=== PATIENT | female | born 1955 | race Caucasian/White ===

== ENCOUNTER 2017-01-16 10:30 | Outpatient (CLI) | payer OTHER ==
[~2017-01-16] VITALS: Ht 167.6 cm; Wt 64.0 kg
[~2017-01-16 10:30] MED LIST: AC500T PO; ALPR1T; AMBIEN; DIASTAT RC; ESTR1TAB24 PO; HYDROCODONE 5/500; IBP800T PO; LEXAPRO; MELA1TAB11 PO; VORT20TA PO
[2017-01-17] MEDS ORDERED: ALPR1TAB2 PO (08:17)
[2017-01-17] MEDS ORDERED: LINA145C PO (09:53)
== END 2017-01-16 10:45 ==
LOC: PREOP 10:30
PROVIDERS: ATTEND Internal Medicine
DX: Z01.818 Encounter for other preprocedural examination (principal); Z12.11 Encounter for screening for malignant neoplasm of colon

== ENCOUNTER 2017-01-17 08:00 | Day surgery (SDC) | payer OTHER ==
--- NOTE | 2017-01-13 23:00 | HISTORY AND PHYSICAL ---
DATE OF SERVICE: HISTORY OF PRESENT ILLNESS: The patient is a 61-year-old white female referred by Dr. Kapoor for screening colonoscopy. She does report decades long history of constipation that has gotten worse despite increased fluid and fiber intake. She will have a hard BM with straining every fourth or fifth day along with the use of magnesium or senna-based laxative. She reports associated bloating with relief after the passage of stool. She denies any problems with diarrhea and has noted no bright red blood per rectum or melena. She has tried regular MiraLax that she does not care for, and stool softeners have not been having any help. She is not aware if this followed any form of trauma or surgery. She reports that her weight has been stable with no change in appetite. PAST SURGICAL HISTORY: Significant for hysterectomy and tubal ligation many years ago. She had more recent surgery what sounds like a bladder suspension for incontinence, which was successful at . PAST MEDICAL HISTORY: Significant for an isolated seizure at that time when she had mild hyponatremia in 2010. She has had no subsequent reported seizures and has not been on any medication for seizures. She does have a history of anxiety and depression. MEDICATIONS ON ADMISSION: Include estradiol 1 mg daily, trintellix 20 mg daily, mirtazapine 45 mg at bedtime, alprazolam 1 mg b.i.d., and p.r.n. Aleve. ALLERGIES: She reports an allergy to PENICILLIN which causes hives. SOCIAL HISTORY: She is and employed with history of social alcohol intake and a past history of occasional smoking, likely only amounting to several pack years over her lifespan. PHYSICAL EXAMINATION: GENERAL: Reveals a pleasant normal weight white female, in no acute distress with normal affect, well kempt. VITAL SIGNS: Blood pressure 130/92, heart rate 72 and regular. HEENT: Unremarkable. Sclerae nonicteric. CHEST: Clear. CARDIOVASCULAR: Reveals regular rate and rhythm without murmur, S3 or S4. ABDOMEN: Soft, supple without mass, organomegaly or tenderness. It has been 2 days since her last bowel movement. Bowel sounds are positive in all four quadrants. EXTREMITIES: Reveal no cyanosis, clubbing, or edema. ASSESSMENT AND PLAN: 1. The patient was set up for screening colonoscopy. Prep instructions with a Suprep kit were given and questions were answered. 2. Chronic constipation without evidence to suggest obstruction. She was given a trial of 145 mcg Linzess to take one half an hour before the first meal of the day. 14 days of samples were given and we will question her about its effectiveness at time of endoscopy. Medication expectations and side effects were discussed with the patient. I thank you for referral of this pleasant lady. Job ID: [id number] DocumentID: [id number] Dictated Date: 01/13/2017 19:30:57 Chief Service Observer Date: 01/13/2017 20:30:13 Dictated By: CLEMENTINE HENRY MD MTDD
[~2017-01-17] VITALS: Ht 167.6 cm; Wt 64.0 kg
--- OUTSIDE RECORDS SUMMARY | 2017-01-17 08:05 | XMS REPORT | Clinical Summary ---
Author Author [facility] Organization [facility] Address Unknown Phone Unavailable Care Team Providers Care Classifier Operator Name Role Phone PCP Unavailable Source Comments Some departments are not documenting in the electronic medical record. If you do not see the information that you expected, contact Release of Information in the Health Information Management department at [phone] for further assistance in locating additional records.[facility] Allergies Active Allergy Reactions Severity Noted Date Comments Penicillins HIVES 09/22/2012 Current Medications Prescription Sig. Disp. Refills Start End Date Status Date ibuprofen (MOTRIN) 800 mg Take 800 mg by mouth Active tablet every 6 hours as needed. hyoscyamine (ANASPAZ; Place 1 Tab under tongue 30 Tab 1 10/27/19 Active NULEV; SYMAX FASTABS; every 4 hours as needed 13 HYOMAX-FT; ED-SPAZ; for Cramps. OSCIMIN) 0.125 mg rapid dissolve tabletIndications: Abdominal pain citalopram (CELEXA) 40 mg Take 40 mg by mouth Active tablet daily. temazepam (RESTORIL) 15 Take 15-30 mg by mouth at Active mg capsule bedtime as needed. oxyCODone-acetaminophen Take 1-2 Tabs by mouth 30 Tab 0 04/30/20 Active (PERCOCET; ENDOCET; every 4 hours as needed 13 ROXICET) 5-325 mg tablet for Pain Max 12 tabs/day docusate (COLACE) 100 mg Take 1 Cap by mouth twice 180 Cap 3 04/30/20 Active capsule daily. 13 ketorolac (TORADOL) 10 mg Take 1 Tab by mouth every 40 Tab 0 04/30/20 Active tablet 6 hours as needed for 13 Pain. HYDROcodone/acetaminophen TAKE ONE TO TWO TABLETS 30 Tab 0 08/03/19 Active (NORCO; VICODIN) 5-325 mg BY MOUTH EVERY 4 HOURS 14 tablet NEEDED FOR PAIN Active Problems Problem Noted Date Rectal prolapse 03/08/2013 IBS (irritable bowel syndrome) 09/22/2012 Fecal incontinence 09/22/2012 Family History Medical History Relation Name Comments Tumor Child Tumor Father Lung Disease Mother Relation Name Status Comments Child Father Mother Social History Tobacco Use Types Packs/Day Years Used Date Former Smoker Cigarettes 0.25 20 Quit: 05/26/2009 Smokeless Tobacco: Never Used Comments: smoked about 1- 1.5 pack weekly Alcohol Use Drinks/Week oz/Week Comments No Sex Assigned at Date Recorded Not on file Last Filed Vital Signs Vital Sign Reading Time Taken Blood Pressure 123/79 05/17/2013 10:27 AM CONTRACT ADMINISTRATOR Pulse 88 05/17/2013 10:27 AM CONTRACT ADMINISTRATOR Temperature 36.5 C (97.7 F) 05/17/2013 10:27 AM CONTRACT ADMINISTRATOR Respiratory Rate 16 05/17/2013 10:27 AM CONTRACT ADMINISTRATOR Oxygen Saturation 96% 04/30/2013 11:00 AM CONTRACT ADMINISTRATOR Inhaled Oxygen - - Concentration Weight 61.2 kg (135 lb) 05/17/2013 10:27 AM CONTRACT ADMINISTRATOR Height 167.6 cm (5' 6") 05/17/2013 10:27 AM CONTRACT ADMINISTRATOR Body Mass Index 21.79 05/17/2013 10:27 AM CONTRACT ADMINISTRATOR Plan of Treatment Health Maintenance Due Date Last Done Comments HEPATITIS C SCREENING 1956 PHYSICAL (COMPREHENSIVE) 12/23/1963 EXAM PERTUSSIS VACCINE 12/23/1967 TETANUS VACCINE 1973 CERVICAL CANCER SCREENING 1986 BREAST CANCER SCREENING 1996 SHINGLES VACCINE 2016 INFLUENZA VACCINE 01/24/2017 COLORECTAL CANCER 11/16/2022 11/16/2012 SCREENING Results Not on filefrom Last 3 Months
--- OUTSIDE RECORDS SUMMARY | 2017-01-17 08:05 | XMS REPORT | Continuity of Care Document ---
Author Author [facility] Organization [facility] Address Unknown Phone Unavailable Allergies Active Description Code Type Severity Reaction Onset Reported/Identified Relationship to Patient Clinical Status Yes Penicillins [id number] Drug Allergy Unknown N/A 12/25/2007 Medications Problems Date Dx Coded Attending Type Code Diagnosis Diagnosed By 01/06/2011 Ot 276.1 01/06/2011 Ot 300.00 01/06/2011 Ot 780.39 04/20/2014 TYLER KLEIN MEDICAL OFFICE WORKER Ot 793.82 04/20/2014 TYLER KLEINP Ot V76.12 12/06/2014 HAWA EL Ot 780.39 05/17/2015 Ot V76.12 05/17/2015 Ot 793.82 05/17/2015 Ot V76.12 05/17/2015 ASHLEY JEAN BAPTISTE, JERRY Qureshi Ot 789.06 05/17/2015 TYLER KLEIN MEDICAL OFFICE WORKER Ot V76.12 05/17/2015 TYLER KLEINP Ot 793.82 05/17/2015 TYLER KLEIN MEDICAL OFFICE WORKER Ot V76.12 05/17/2015 HAWA EL Ot 780.39 06/13/2015 SHARA RAMOS APRN Ot Z12.31 05/22/2016 SHARA RAMOS APRN Ot Z12.31 ENCNTR SCREEN MAMMOGRAM FOR MALIGNANT NE 06/04/2016 SHARA RAMOS APRN Ot Z12.31 ENCNTR SCREEN MAMMOGRAM FOR MALIGNANT NE Procedures Results Encounters ACCT No. Visit Date/Time Discharge Status Pt. Type Provider Facility Loc./Unit Complaint [id number] 05/21/2016 09:44:00 2015 23:59:59 CLS Outpatient SHARA RAMOS APRN [facility] RAD SCREENING [id number] 05/17/2015 10:46:00 2014 23:59:59 CLS Outpatient SHARA RAMOS APRN [facility] RAD [id number] 11/25/2014 07:52:00 2014 23:59:59 CLS Outpatient HAWA EL [facility] RT [id number] 04/07/2014 08:29:00 2013 23:59:59 CLS Outpatient TYLER KLEIN [facility] RAD [id number] 03/03/2013 09:10:00 2012 23:59:59 CLS Outpatient TYLER KLEIN [facility] RAD [id number] 09/29/2012 07:47:00 2012 23:59:59 CLS Outpatient ASHLEY JEAN BAPTISTE, JERRY Qureshi [facility] RAD [id number] 01/17/2017 10:00:00 PEN Preadraj HENRY MD, CLEMENTINE Grey [facility] SDC SCREENING [id number] 02/13/2012 08:22:00 Document Registration [id number] 01/04/2011 21:58:00 Document Registration [id number] 12/07/2010 08:53:00 Document Registration
[2017-01-17] MEDS ORDERED: 1/2 NS IV SOLUTION 1,000 ML IV STA (08:13)
[2017-01-17 08:17] VITALS: BP 124/85
[2017-01-17] MEDS ORDERED: ALPR1TAB2 PO (08:17)
[2017-01-17] MEDS ORDERED: 1/2 NS IV SOLUTION 1,000 ML IV ONE (08:17)
[2017-01-17] MEDS ORDERED: LIDOCAINE JELLY 2% (XYLOCAINE) 5 ML TUBE ONE (08:53)
[2017-01-17] MEDS ORDERED: MIDAZOLAM 2 MG/2 ML (VERSED) VIAL ONE ×3 (08:53→09:10)
[2017-01-17] MEDS ORDERED: fentaNYL INJECTION 100 MCG/2 ML AMP ONE ×2 (08:53→09:09)
--- NOTE | 2017-01-17 09:04 | Pre-Op Note & Conscious Sedat ---
Pre-Operative Progress Note H&P Reviewed The H&P was reviewed, patient examined and no changes noted. Date H&P Reviewed: Jan 17, 2017 Time H&P Reviewed: 09:00 Conscious Sedation Pre-Proced ASA Class: 2 Airway Mallampati Classification: (big sandy appropriate class) I. II. III, IV Lungs Heart ASA score ASA 1: a normal healthy patient ASA 2: a patient with a mild systemic disease (mid diabetes, controlled hypertension, obesity ASA 3: a patient with a severe systemic disease that limits activity (angina , COPD, prior Myocardial infarction) ASA 4: a patient with an incapacitating disease that is a constant threat to life (CHF, renal failure) ASA 5: a moribund patient not expected to survive 24 hrs. (ruptured aneurysm) ASA 6: a declared brain patient whose organs are being harvested. For emergent operations, add the letter E after the classification Grade 2 Sedation Plan: Analgesia, Amnesia, Plan communicated to team members, Discussed options with patient/fam, Discussed risks with patient/fam Note The patient is an appropriate candidate to undergo the planned procedure, sedation, and anesthesia. The patient immediately re-assessed prior to indication. CLEMENTINE HENRY MD Jan 17, 2017 09:04
[2017-01-17] MEDS: fentaNYL INJECTION 100 MCG/2 ML AMP IVP PRN ×4 (09:08→09:19)
[2017-01-17] MEDS: MIDAZOLAM 2 MG/2 ML (VERSED) VIAL IVP PRN ×3 (09:09→09:20)
[2017-01-17] MEDS ORDERED: LINA145C PO (09:53)
[2017-01-17 10:00] VITALS: BP 111/73
[2017-01-17 10:28] VITALS: BP 115/82
[2017-01-17 10:35] VITALS: BP 115/82
[2017-01-17] MEDS ORDERED: LIDOCAINE JELLY 2% (XYLOCAINE) 5 ML TUBE TOP ONE (11:00)
--- NOTE | 2017-01-19 07:25 | OPERATIVE REPORT ---
DATE OF SERVICE: COLONOSCOPY SUMMARY PROCEDURE: The patient was referred for screening colonoscopy. DESCRIPTION OF PROCEDURE: The patient was placed in left lateral decubitus position. Prior to undergoing colonoscopy, digital rectal evaluation was performed. Anal sphincter tone was normal and perianal reflexes intact. No abnormalities were noted on digital inspection of the anal canal or distal rectal vault. The colonoscope was then inserted into the rectum and under direct visualization advanced to the cecum. The cecum was identified by identification of the ileocecal valve and cecal strap. Photographic documentation was obtained. Careful inspection was made as the colonoscopy was withdrawn. The patient did have an irritable bowel type response to air insufflation or colonic manipulation. The quality of the prep was good. FINDINGS: There was no evidence for internal or external hemorrhoids. The rectum, sigmoid colon, descending colon, transverse colon, splenic flexure, transverse colon, hepatic flexure, ascending colon and cecum were unremarkable with no evidence for obstruction, neoplasia or diverticular disease. ASSESSMENT: Normal colonoscopy to the cecum. Due to this patient's chronic problems with constipation and failure of stool softeners, fiber agents, MiraLax, requiring either senna or enemas for evacuation. I did start her on Linzess 145 mg daily. The patient reports for the first time as long as she can remember she has been having normal bowel movements without diarrhea and reports significant diminishment in her abdominal pain. These findings were compatible with an individual with IBS-C (constipation). I took the liberty of calling out another month's worth of 145 mg Linzess. She was told she will likely require this indefinitely to continue its benefits of normal bowel function with diminishment of pain. She was advised to get further refills through your office. I thank you for the referral of this pleasant lady. Sincerely, Job ID: [id number] DocumentID: [id number] Dictated Date: 01/17/2017 13:20:06 Math And Science Instructor Date: 01/18/2017 03:06:07 Dictated By: CLEMENTINE HENRY MD [facility]
== END 2017-01-17 10:35 | disposition home or self-care (01) ==
LOC: ENDO 08:00
PROVIDERS: ATTEND Internal Medicine
DX: Z12.11 Encounter for screening for malignant neoplasm of colon (principal); K59.09 Other constipation; F41.9 Anxiety disorder, unspecified; F32.9 Major depressive disorder, single episode, unspecified; Z79.899 Other long term (current) drug therapy

== ENCOUNTER → 2017-09-04 | Outpatient (CLI) | payer BC, OTHER ==
[~2017-09-04] MED LIST changes: +ALPR1TAB2 PO; +LINA145C PO
--- NOTE | 2017-09-04 13:11 | Diagnostic Imaging Report ---
INDICATION: Routine screening. Comparison is made with prior exam from 05/21/2016 and 05/17/2015. The current study was also evaluated with a Computer Aided Detection (CAD) system. Both breasts remain heterogeneously dense, limiting the sensitivity of mammography. The parenchymal pattern is stable. No mass or malignant appearing microcalcifications are seen. The axillae are unremarkable. IMPRESSION: BI-RADS category one No mammographic features suspicious for malignancy are identified. ACR BI-RADS Category 1: Negative. Result letter will be mailed to the patient. Note: At least 10% of breast cancer is not imaged by mammography. Dictated by: Dictated on workstation # [id number]
== END ==
LOC: RAD 11:21
PROVIDERS: ATTEND Nurse Practitioner Family
DX: Z12.31 Encounter for screening mammogram for malignant neoplasm of breast (principal)
CPT/HCPCS: 77067